=== PATIENT | female | born 1995 ===

== ENCOUNTER 2020-08-16 16:01 | Inpatient (IN) | payer OTHER ==
[2020-08-16] VITALS (8 sets, daily range): BP systolic 108–139; BP diastolic 57–72
[~2020-08-16] VITALS: Ht 162.6 cm; Wt 88.4 kg
[2020-08-16] MEDS ORDERED: PRENTAB9 PO (16:30)
[2020-08-16] MEDS ORDERED: TUMS750C22 PO (16:31)
[2020-08-16 17:36] LABS: HEMOGLOBIN 12.5 g/dl (12.0-15.5); MEAN CORPUSCULAR HGB CONC 33.8 g/dl (32.0-36.5); MEAN CORPUSCULAR VOLUME 91.8 fl (80.0-96.0); PLATELET COUNT, AUTOMATED 179 10^3/uL (150-450); RED BLOOD COUNT 4.03 10^6/uL (4.00-5.40); WHITE BLOOD COUNT 10.6 10^3/uL (4.0-10.0)
--- NOTE | 2020-08-16 19:01 | HPEPDOC ---
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 Past Medical History Surgical History: Onaway teeth Family History Significant Family History: No pertinent family hx Social History Marital Status: Family situation: Spouse/partner home Psychosocial History: No pertinent psych hx * Smoker: non-smoker Alcohol: Denies Allergies Coded Allergies: latex (Verified Allergy, Intermediate, 08/16/20) (RASH, HIVES) amoxicillin (Verified Allergy, Unknown, 08/16/20) cefaclor (Verified Allergy, Unknown, 08/16/20) UNKNOWN REACTION A CHILD clavulanic acid (Verified Allergy, Unknown, 08/16/20) UNKNOWN REACTION A CHILD Medications Scheduled Calcium Carbonate (Tums) 300 Mg Tab.chew, 1 TAB PO BID No.137/Iron/Folic Acd ( Vitamin Tablet) 1 Each Tablet, 1 TAB PO DAILY Physical Examination Physical Examination GENERAL: Alert and oriented times three. BREAST: . ABDOMEN: Gravid and non-tender to touch. FETUS: Is vertex (VTX) by sterile vaginal examination (SVE), fetus is vertex (VTX) by Adolfo. HEART RATE: Regular rate and rhythm. LUNGS: Clear to auscultation (CTA). Vital Signs/I&O Vital Signs Date Time Temp Pulse Resp B/P (MAP) Pulse Ox O2 Delivery O2 Flow Rate FiO2 08/16/20 17:57 58 117/66 (83) 08/16/20 16:22 97.1 16 Laboratory Data 24H LABS Laboratory Tests 2 08/16/20 17:24: Nucleated Red Blood Cells % (auto) 0.0, Syphilis Serology NONREACTIVE 08/16/20 17:29: Serology Scanned Report Hepatitis B Testing CBC/BMP Laboratory Tests 08/16/20 17:24 Pertinent Laboratoy Data Blood Type: O+ HIV: Negative Hepatitis B: Negative Rapid Plasma Reagin: Nonreactive Rubella: Immune Chlamydia/Gonorrhea: Negative Group B Streptococcus: Negative Glucose Tolerance Test: 109 Anatomy Ultrasound Placenta Location: Posterior Normal Anatomy: Yes (echogenic cardiac focus) Placenta Previa: No Vaginal Examination Dilation: 1cm Effacement: 70% Station: -3 Cervical Consistency: Soft Cervical Position: Middle Presentation: Cephalic presentation Assessment Variability: Moderate Accelerations: Positive Decelerations: None Assessment/Plan Assessment 24yo G1 at 39w0d IOL Reassuring status Plan Admit and orient. Forepart Rasper and consent. Diet: regular Group B Streptococcus (GBS) negative. Labs and intravenous (IV) per unit protocol. Counseled on Pitocin and induction of labor (IOL). Anticipate normal spontaneous delivery (). C-S as appropriate. BLANCA UMAÑA MD. Aug 16, 2020 19:01
[2020-08-16] MEDS: miSOPROStol 50 MCG 1/2 TAB (S0191) PO SCH ×2 (19:15→23:17)
[2020-08-17] VITALS (44 sets, daily range): BP systolic 98–175; BP diastolic 54–105
[2020-08-17] MEDS: miSOPROStol 50 MCG 1/2 TAB (S0191) PO SCH ×6 (03:57→23:00)
[2020-08-17] MEDS ORDERED: OXYTOCIN 30 UNITS IN 0.9% NaCl 500ML IV BAG (J2590) As Ordered ONE (11:19)
--- NOTE | 2020-08-17 12:02 | IPNPDOC ---
Text Note Date of Service The patient was seen on 08/17/20. NOTE 11/17/2020 1200 patient admitted gestational hypertension IOL had 3 lots Cy totec category 1 strip. cervix unchanged from admission 1 cm soft posterior -3 station. plan Guevara's catheter and Pitocin safe to proceed VS,Fishbone, I+O VS, Fishbone, I+O Laboratory Tests 08/16/20 17:24 Vital Signs Date Time Temp Pulse Resp B/P (MAP) Pulse Ox O2 Delivery O2 Flow Rate FiO2 08/17/20 06:27 68 16 117/55 (75) 08/17/20 05:59 98.3 08/16/20 19:13 98 Room Air I&O- Last 24 Hours up to 6 AM 08/17/20 06:00 Intake Total 660 ml Output Total 600 ml Balance 60 ml Matt Melo MD Aug 17, 2020 12:02
[2020-08-17] MEDS: LR 1,000 ML IV SCH ×2 (12:41→15:16)
[2020-08-17] MEDS: OXYTOCIN DRIP 30 UNITS in IV 1 EA IV SCH (12:41)
--- NOTE | 2020-08-17 13:10 | IPNPDOC ---
Text Note Date of Service The patient was seen on 08/17/20. NOTE Dr. Melo dictating progress note on Elizabeth. This lady is a 1, para 0, brought in for induction of labor, gestational proteinuria. She's had for lots of Cytotec basically no change in the cervix over that entire course of time. Presently has a category 1 strip. Blood p ressure is 117/55 discussion of plan of care. We are going to put a Cook's catheter with 60/40 volume and start Pitocin at 2 mU/m patient expressed understanding of plan of care safe to proceed VS,Fishbone, I+O VS, Fishbone, I+O Laboratory Tests 08/16/20 17:24 Vital Signs Date Time Temp Pulse Resp B/P (MAP) Pulse Ox O2 Delivery O2 Flow Rate FiO2 08/17/20 06:27 68 16 117/55 (75) 08/17/20 05:59 98.3 08/16/20 19:13 98 Room Air I&O- Last 24 Hours up to 6 AM 08/17/20 06:00 Intake Total 660 ml Output Total 600 ml Balance 60 ml Matt Melo MD Aug 17, 2020 13:10
[2020-08-17 21:51] LABS: CREATININE,RANDOM URINE 79.3 MG/DL
--- NOTE | 2020-08-17 22:40 | IPNPDOC ---
Text Note Date of Service The patient was seen on 08/17/20. NOTE 2200 hour 08/17/20 cook's catheter fell out has had mid-range blood pressures none severe p/c ratio 3.25 indicates significant proteinuria in 24 hours . plan is to AROM patient 4 cm mid position clear liquor vertex -3 station Pitocin at 10 munits . reduce Pitocin to evaluate effect of AROM . safe to proceed VS,Fishbone, I+O VS, Fishbone, I+O Vital Signs Date Time Temp Pulse Resp B/P (MAP) Pulse Ox O2 Delivery O2 Flow Rate FiO2 08/17/20 18:19 63 18 145/83 (103) 08/17/20 17:48 97.8 08/16/20 19:13 98 Room Air I&O- Last 24 Hours up to 6 AM 08/17/20 05:59 Intake Total 660 ml Output Total 350 ml Balance 310 ml Matt Melo MD Aug 17, 2020 22:33
--- NOTE | 2020-08-17 22:48 | IPNPDOC ---
Text Note Date of Service The patient was seen on 08/17/20. NOTE 2200 08/12/20 PATIENT REQUEST EPIDURAL SIGNIFICANT PAIN BP APPROACHING SEVERE RANGE MAY USE HYPERTENSIVE PROTOCOL VS,Fishbone, I+O VS, Fishbone, I+O Vital Signs Date Time Temp Pulse Resp B/P (MAP) Pulse Ox O2 Delivery O2 Flow Rate FiO2 08/17/20 22:20 75 161/92 (115) 08/17/20 18:19 18 08/17/20 17:48 97.8 08/16/20 19:13 98 Room Air I&O- Last 24 Hours up to 6 AM 08/17/20 05:59 Intake Total 660 ml Output Total 350 ml Balance 310 ml Matt Melo MD Aug 17, 2020 22:46
[2020-08-17 23:07] LABS: HEMOGLOBIN 13.1 g/dl (12.0-15.5); MEAN CORPUSCULAR HEMOGLOBIN 30.8 pg (27.0-33.0); MEAN CORPUSCULAR HGB CONC 33.6 g/dl (32.0-36.5); MEAN CORPUSCULAR VOLUME 91.8 fl (80.0-96.0); PLATELET COUNT, AUTOMATED 197 10^3/uL (150-450); RED BLOOD COUNT 4.25 10^6/uL (4.00-5.40); WHITE BLOOD COUNT 16.2 10^3/uL (4.0-10.0)
[2020-08-17] MEDS ORDERED: FENTANYL 2MCG/ML ROPIVACAINE 0.2% IN 0.9% NACL 100ML IVBAG As Ordered ONE (23:08)
[2020-08-18] VITALS (39 sets, daily range): BP systolic 109–161; BP diastolic 54–106
[2020-08-18] MEDS ORDERED: EPIDURAL/PCA KEYS XX PRN (00:45)
[2020-08-18] MEDS ORDERED: LACTATED RINGER'S 1000 ML IV PRN (00:45)
[2020-08-18] MEDS ORDERED: diphenhydrAMINE 50MG/ML VIAL (J1200) IV PRN (00:45)
[2020-08-18] MEDS ORDERED: REFRIGERATOR IV KEYS XX PRN (00:45)
[2020-08-18] MEDS ORDERED: EPIDURAL COMMENT XX SCH (00:45)
[2020-08-18] MEDS ORDERED: ONDANSETRON 4MG/2ML VIAL IV PRN ×3 (00:45→09:00)
[2020-08-18] MEDS ORDERED: ePHEDrine SULFATE 25 MG/5 ML(5MG/ML) SYRINGE IV PRN (00:45)
[2020-08-18] MEDS ORDERED: NALOXONE INJ 0.4MG/1ML VIAL (J2310 PER 1MG) IV PRN ×3 (00:45→07:27)
[2020-08-18] MEDS ORDERED: FENTANYL/ROPIVACAINE/NACL BAG 100 ML EPIDURAL SCH (00:45)
[2020-08-18] MEDS: miSOPROStol 50 MCG 1/2 TAB (S0191) PO SCH (03:00)
[2020-08-18] MEDS: LR 1,000 ML IV SCH ×3 (05:05→19:43)
[2020-08-18] MEDS: OXYTOCIN DRIP 30 UNITS in IV 1 EA IV SCH (05:05)
[2020-08-18] MEDS ORDERED: BICITRA 30ML SOLN UDC As Ordered ONE (06:32)
[2020-08-18] MEDS ORDERED: ACETAMINOPHEN 650 MG SUPP As Ordered ONE (06:33)
[2020-08-18] MEDS ORDERED: LIDOCAINE 2% W/EPINEPHRINE 20ML VIAL **PRES FREE As Ordered ONE (06:44)
[2020-08-18] MEDS ORDERED: CLINDAMYCIN 900 MG in IV 1 EA IV ONE (06:45)
[2020-08-18] MEDS ORDERED: BUPIVACAINE HCL 0.25% 10ML VIAL SC ONE (06:45)
[2020-08-18] MEDS ORDERED: ACETAMINOPHEN 650 MG SUPP PR ONE (06:45)
[2020-08-18] MEDS ORDERED: OXYTOCIN INJ 10 UNITS/ML VIAL (J2590) As Ordered ONE (06:47)
--- NOTE | 2020-08-18 06:58 | IPNPDOC ---
Text Note Date of Service The patient was seen on 08/18/20. NOTE 08/18/20 0600 am reviewed progress fully dilated adequate contractions adequate pushing effort examination swollen vulva, moulding and pop position vertex at -3 station. discussed with patient re cs for CPD and failure to progress. discussed risk ie hemorrhage infection perforation reoperation blood transfusion laceration admission to NICU. EXPRESSED UNDERSTANDING SIGNED CONSENT ALL QUESTIONS ANSWERED CONSULT ANAESTHESIA, AND NEONATOLOGY VS,Fishbone, I+O VS, Fishbone, I+O Laboratory Tests 08/17/20 22:58 Vital Signs Date Time Temp Pulse Resp B/P (MAP) Pulse Ox O2 Delivery O2 Flow Rate FiO2 08/17/20 22:20 75 161/92 (115) 08/17/20 18:19 18 08/17/20 17:48 97.8 08/16/20 19:13 98 Room Air I&O- Last 24 Hours up to 6 AM 08/18/20 05:59 Intake Total 3135 ml Output Total 1400 ml Balance 1735 ml Matt Melo MD Aug 18, 2020 06:51
--- NOTE | 2020-08-18 06:59 | IPNPDOC ---
Text Note Date of Service The patient was seen on 08/18/20. VS,Paige, I+O VS, Benjie, I+O Laboratory Tests 08/17/20 22:58 Vital Signs Date Time Temp Pulse Resp B/P (MAP) Pulse Ox O2 Delivery O2 Flow Rate FiO2 08/18/20 06:52 104 156/98 (117) 08/18/20 06:32 18 08/17/20 17:48 97.8 08/16/20 19:13 98 Room Air I&O- Last 24 Hours up to 6 AM 08/18/20 05:59 Intake Total 3135 ml Output Total 1400 ml Balance 1735 ml Matt Melo MD Aug 18, 2020 06:59
[2020-08-18] MEDS ORDERED: MORPHINE PRES-FREE INJ 10 MG/10 ML VIAL (J2274) As Ordered ONE (07:22)
[2020-08-18] MEDS ORDERED: dexameTHASONE 4 MG/ML 1ML VIAL (J1100 PER 1MG) As Ordered ONE (07:22)
[2020-08-18] MEDS ORDERED: ONDANSETRON 4MG/2ML VIAL As Ordered ONE (07:22)
[2020-08-18] MEDS ORDERED: METOCLOPRAMIDE INJ 10MG/2ML VIAL (J2765 PER 1) IV PRN ×2 (07:27→09:00)
[2020-08-18] MEDS ORDERED: NALBUPHINE HCL 10 MG/ML AMP (J2300) IV PRN (07:27)
[2020-08-18 07:40] LABS: CORD GAS ABE A -1.4; CORD GAS ABE V -3.7; CORD GAS HCO3 A 27.6 MEQ/L; CORD GAS HCO3 V 22.1 MEQ/L; CORD GAS O2 SAT A 36.3 %; CORD GAS O2 SAT V 72.3 %; CORD GAS PCO2 A 62.7 mmHg; CORD GAS PCO2 V 42.5 mmHg; CORD GAS PH A 7.262 UNITS; CORD GAS PH V 7.333 UNITS; CORD GAS PO2 A 19.3 mmHg; CORD GAS PO2 V 31.9 mmHg; CORD GAS SBC A 21.4 MEQ/L; CORD GAS SBC V 20.7 MEQ/L; CORD GAS TCO2 A 29.6 MEQ/L; CORD GAS TCO2 V 23.4 MEQ/L
[2020-08-18] MEDS ORDERED: OXYTOCIN 30 UNITS IN 0.9% NaCl 500ML IV BAG (J2590) As Ordered ONE (07:53)
[2020-08-18] MEDS ORDERED: KETOROLAC 30 MG/ML 1ML VIAL IV PRN (08:07)
[2020-08-18] MEDS ORDERED: KETOROLAC 60MG 2ML VIAL As Ordered ONE (08:07)
[2020-08-18] MEDS ORDERED: OXYTOCIN DRIP 30 UNITS in IV 1 EA IV ONE (08:45)
[2020-08-18] MEDS ORDERED: ANUSOL HC CREAM 30GM TOP PRN (08:45)
[2020-08-18] MEDS ORDERED: ACETAMINOPHEN TAB 650MG DOSE (2X325MG) PO PRN (08:45)
[2020-08-18] MEDS ORDERED: DOCUSATE SODIUM 100 MG CAP PO PRN (08:45)
[2020-08-18] MEDS ORDERED: MOM 30ML SUSPENSION UDC PO PRN (08:45)
[2020-08-18] MEDS ORDERED: RHOGAM 300 MCG (1500 IU) INJ (J2790) IM SCH (08:45)
[2020-08-18] MEDS ORDERED: METHYLERGONOVINE MALEATE 0.2 MG TAB PO PRN (08:45)
[2020-08-18] MEDS ORDERED: MEASLES,MUMPS,RUBELLA VACCINE INJ (MMR-II) (90707) SC SCH (08:45)
[2020-08-18] MEDS ORDERED: IBUPROFEN 600MG TAB PO PRN (08:45)
[2020-08-18] MEDS ORDERED: ACETAMINOPHEN 500 MG TAB PO PRN (08:45)
[2020-08-18] MEDS ORDERED: OXYTOCIN INJ 10 UNITS/ML VIAL (J2590) IV ONE (08:45)
[2020-08-18] MEDS ORDERED: LR 1,000 ML IV SCH (09:00)
[2020-08-18] MEDS ORDERED: fentaNYL 100 MCG/2 ML INJECTION (J3010) IV PRN (09:00)
[2020-08-18] MEDS ORDERED: MEPERIDINE INJ 25 MG/ML VIAL (J2175) IV PRN (09:00)
[2020-08-18] MEDS ORDERED: PERCOCET 5MG/325MG TAB PO PRN (09:00)
[2020-08-18] MEDS: PERCOCET 5MG/325MG TAB PO PRN ×2 (10:47→22:47)
--- NOTE | 2020-08-18 13:37 | RO ---
DATE OF OPERATION: 08/18/2020 INDICATIONS: This lady was admitted for induction of labor because of gestational proteinuria. She eventually got fully dilated, pushed for over 1 hours. It was in the POP position with marked molding and no descent of the presenting part, with significant labial edema. She was found to be POP in position, Category I strip. PREOPERATIVE DIAGNOSIS: Primary section. POSTOPERATIVE DIAGNOSIS: Primary section. OPERATION PROPOSED: Primary section for persistent occipitoposterior position, failure to descend, polyhydramnios, and cord x2. PROCEDURE IN DETAIL: Under adequate anesthesia, prepped and draped in the supine position, Weaver catheter in the bladder draining urine, antibiotics prophylactically preoperatively, acetaminophen suppository 1300 mg per rectum, a Pfannenstiel incision was made two finger breadths above the symphysis pubis, passing through abdominal layers, securing hemostasis. Upon opening the peritoneal cavity, a thin lower segment, Mobius was placed. Bladder reflected well down anteriorly. Low transverse incision. Polyhydramnios in the form of 900 cc of fluid. We delivered with ease a live male , cord x2. Arterial pH was 7.26, base excess was -1.4. Venous pH was 7.33, base excess -3.7. There were three vessels in the cord. Membranes and tissues intact. The placenta was delivered manually, swept out of the uterus. The uterus contracted well down under Pitocin. The lower segment was oversewn in the usual fashion, imbricating the second layer. Reperitonealization was performed. With instrument and pad counts correct, the Mobius was removed. Both ovaries and tubes appeared to be normal. The uterus contracted well down under Pitocin. The abdomen was then closed with a running stitch for the peritoneum, the same for the fascia, interrupted SQ, Dexon to the skin, Marcaine 0.25% 10 mL. Mepore dressing was placed. After readjusting the catheter, there was 325 cc of urine, clear. SURGEON: Matt Melo MD GROUND CONTROL APPROACH TECHNICIAN: Rafi, Certified Nurse Lime Trimmer, for extraction, retraction, and visualization, without which the procedure could not be completed. The patient and baby tolerated the procedure well. SEYMOUR
[2020-08-18] MEDS: PRENATAL VITAMINS CHEWABLE TABLET PO SCH (13:45)
[2020-08-18] MEDS: KETOROLAC 30 MG/ML 1ML VIAL IV SCH ×2 (13:46→19:43)
[2020-08-18] MEDS: diphenhydrAMINE 50MG/ML VIAL (J1200) IV PRN ×2 (13:46→22:46)
[2020-08-18] MEDS ORDERED: LR 500 ML IV ONE (18:15)
[2020-08-19] MEDS: LR 1,000 ML IV SCH (00:34)
[2020-08-19] MEDS: KETOROLAC 30 MG/ML 1ML VIAL IV SCH (02:02)
[2020-08-19 02:11] VITALS: BP 131/67
[2020-08-19] MEDS: PERCOCET 5MG/325MG TAB PO PRN ×3 (03:28→23:20)
[2020-08-19 05:58] VITALS: BP 142/71
[2020-08-19] MEDS ORDERED: BICITRA 30ML SOLN UDC PO ONE (06:00)
[2020-08-19] MEDS: PRENATAL VITAMINS CHEWABLE TABLET PO SCH (07:43)
[2020-08-19] MEDS ORDERED: INFLUENZA QUADRIVALENT PF VACCINE 0.5ML SYRINGE IM ONE (09:00)
--- NOTE | 2020-08-19 09:18 | IPNPDOC ---
Progress Note Date of Service: Aug 19, 2020 Day#: 1 Progress Note SUBJECT: Luisa is a 24yo s/p PLTCS for arrest of descent doing well postp artum day # 1. She has been ambulating, voiding spontaneously without issue and tolerating regular diet. Breast feeding without issue. Reports lochia is decreasing. Patient is ambulating well. Pain controlled on current pain meds. OBJECTIVE: VITAL SIGNS: Within normal limits, afebrile. Alert and oriented times three. RESP: no exaggerated respiratory effort, no cough CARDS: well-perfused Abdomen: Fundus firm at U-2. Soft, appropriately tender to palpation' Incision: c/d/i with dressing in place : mild edema, scant lochia Ext: no edema, no calf tenderness ASSESSMENT: Luisa is a 24yo s/p PLTCS for arrest of descent doing well day # 1. Vitals within normal limits, afebrile, hemodynamically stable with no evidence of infection. PLAN: 1. Discharge planning to home tomorrow 2. Continue current pain mgmt - patient counseled discharge meds are ready for pick-up at [facility] 3. Encourage breast feeding with support 4. Encourage regular diet as tolerated. 5. Encourage ambulation OOB as tolerated. 6. Patient to f/u in 6 weeks for pp visit VS, I&O, 24H, Paige Vital Signs/I&O Vital Signs Date Time Temp Pulse Resp B/P (MAP) Pulse Ox O2 Delivery O2 Flow Rate FiO2 08/19/20 05:58 98.1 83 18 142/71 (94) 98 08/18/20 23:40 Room Air I&O- Last 24 Hours up to 6 AM 08/19/20 06:00 Intake Total 6030 ml Output Total 1650 ml Balance 4380 ml LUISA EASTON DO Aug 19, 2020 09:18
[2020-08-19 10:00] VITALS: BP 127/63
[2020-08-19] MEDS: IBUPROFEN 800 MG TAB PO SCH ×2 (10:23→18:33)
[2020-08-19 14:03] VITALS: BP 136/74
[2020-08-19 18:06] VITALS: BP 138/70
[2020-08-19] MEDS ORDERED: SIMETHICONE 80 MG CHEW TAB PO PRN (20:30)
[2020-08-19 22:00] VITALS: BP 164/84
[2020-08-20 02:00] VITALS: BP 147/72
[2020-08-20] MEDS: IBUPROFEN 800 MG TAB PO SCH ×2 (02:05→10:13)
[2020-08-20] MEDS: PERCOCET 5MG/325MG TAB PO PRN ×2 (05:36→13:35)
[2020-08-20 06:00] VITALS: BP 132/68
[2020-08-20] MEDS ORDERED: PERCOCET PO (07:09)
[2020-08-20] MEDS ORDERED: DOCU100C16 PO (07:09)
[2020-08-20] MEDS ORDERED: IBUP80TA PO (07:09)
[2020-08-20] MEDS: PRENATAL VITAMINS CHEWABLE TABLET PO SCH (08:38)
--- NOTE | 2020-08-22 07:34 | DS ---
DATE OF ADMISSION: 08/16/2020 DATE OF DISCHARGE: 08/20/2020 This lady is a 1, now para 1, who was admitted for induction of labor at 39 weeks because of gestational proteinuria. She had a primary section for persistent occiput posterior, failure descend and failure to progress, plus polyhydramnios. Delivered a male infant 8 pounds 1 ounce, 3650 grams. scores were 9 and 9 at one and five minutes, respectively. Arterial pH was 7.26, base excess -1.4, venous pH 7.33, base excess -3.7. On her second day we discussed phlebitis, cystitis, mastitis, endometritis, and cellulitis, diet, exercise, pain management, perineal, breast, and wound care. On examination, her blood pressure was 132/68, respirations 16, pulse 76, temperature 97.8. Her admitting hemoglobin was 12.5, hematocrit 37.0, and platelets 179. Discharge hemoglobin 13.1, hematocrit 39.0, and platelets were 197. The rest of the examination is unremarkable. Normocephalic, atraumatic. Neck: Full range of motion. Pupils equal and reactive to light. Distal pulses are symmetric. No evidence of deep venous thrombosis (DVT), pulmonary embolus (PE), or superficial phlebitis. Chest is clear bilaterally to bases. No wheezes or rhonchi. No costovertebral angle (CVA) tenderness. Abdomen is soft. Four-quadrant bowel sounds are noted. Incision is clean and dry. She has no rashes, lesions or pruritus. No arthralgia or myalgia. No complaint of joint pain. No complaints of cough, wheeze, shortness of breath, or dyspnea on exertion. No nausea or vomiting. No urgency or frequency. Our plan is for her to discharge today. Followup with picking up medications at [facility]. Have a 2-week incision check, virtual, and a 6-week check, actual. Patient expressed understanding of the plan of care. A 20-minute discussion. All questions were answered. SEYMOUR
--- NOTE | 2020-08-30 11:20 | IPN ---
DATE: 08/18/2020 This patient and her requested circumcision of their male after discussing risks and benefits of circumcision, medical and non-medical indications, the penile block and aftercare. Expressed understanding of penile block, aftercare and bleeding. Signed the consent form. All questions were answered, 20 minute discussion. We await the clearance by the marketing strategist. SEYMOUR
== END 2020-08-20 13:45 | disposition home or self-care (01) | DRG 773 ==
LOC: M LDI 16:01 → M OBS 08-18 09:50
PROVIDERS: ADMIT Obstetrics & Gynecology; ATTEND Obstetrics & Gynecology
PROC: 3E0P7GC Introduction of Other Therapeutic Substance into Female Reproductive, Via Natural or Artificial Opening (ICD-10-PCS; 2020-08-16)
PROC: 10D00Z1 Extraction of Products of Conception, Low, Open Approach (ICD-10-PCS; principal; 2020-08-18 07:21)
DX: O12.14 Gestational proteinuria, complicating childbirth (principal); Z3A.39 39 weeks gestation of pregnancy; O64.0XX0 Obstructed labor due to incomplete rotation of fetal head, not applicable or unspecified; O40.3XX0 Polyhydramnios, third trimester, not applicable or unspecified; Z37.0 Single live birth